=== PATIENT | female | born 1955 | race Caucasian/White ===

== ENCOUNTER → 2022-11-13 | Outpatient (CLI) | payer MEDICARE, OTHER, SELFPAY ==
--- NOTE | 2022-11-13 16:35 | NEURO ---
NCS and/or EMG Patient Report Ordering Doctor: Bernard Marcial DATE OF SERVICE: 11/13/22 Findings: Nerve conduction studies were performed in the right upper extremity. The right median motor study recording the abductor pollicis brevis showed a normal amplitude, prolonged distal latency and slowed conduction velocity. The right ulnar motor study recording the abductor digiti minimi showed a normal amplitude, normal distal latency and normal conduction velocity. No conduction block or focal slowing was present across the elbow. The right median sensory response recording digit two showed a borderline amplitude, prolonged latency and markedly slowed conduction velocity. The right ulnar sensory response recording digit five showed a normal amplitude, normal latency and borderline conduction velocity. The right radial sensory response recording over the extensor snuff box showed a normal amplitude, normal latency and borderline conduction velocity. Needle EMG of the right upper extremity muscles was performed. No denervation was seen in any muscle. In the abductor pollicis brevis motor units were slightly large amplitude and slightly long duration with mildly reduced recruitment. All other motor unit morphology, activation and recruitment patterns were normal. Impression: This is an abnormal study. There is electrophysiologic evidence of median neuropathy across the right wrist. The pathophysiology is primarily demyelination. These findings are compatible with the clinical diagnosis of carpal tunnel syndrome. Sadiq York D.O. [employer] Codes Neurology Neurology Interp Codes: 51178-12 Musc test done w/n test comp (interp) and 49949-14 Nrv cndj tst 5-6 studies (interp)
== END | disposition home or self-care (01) ==
LOC: PSN 15:49
PROVIDERS: PCP Internal Medicine; Referring Provider Orthopaedic Surgery; Visit Provider Orthopaedic Surgery
DX: G56.21 Lesion of ulnar nerve, right upper limb (principal)
CPT/HCPCS: 95886; 95909